=== PATIENT | male | born 1945 | race Native Hawaiian/Other Pacific Islander ===

== ENCOUNTER 2017-10-29 09:52 | Emergency (ER) | payer MEDICARE ==
--- NOTE | 2017-10-29 11:14 | Emergency Department Report ---
ED Male HPI - General Chief complaint: Urogenital-Male Stated complaint: pringle catheter issue Time Seen by Provider: 10/29/17 11:08 Source: patient Mode of arrival: Ambulatory Limitations: No Limitations - History of Present Illness Initial comments: Patient is a 72-year-old spelled male who is presenting with a chief complaint of wanting his Pringle catheter removed. Patient is a poor historian secondary to his age he states that he does not remember exactly why the Pringle was placed. Patient states it's been present for approximately 15 days. The Pringle catheter was inserted at another hospital and is not associated with hours. Patient states he has no pain and he said free-flowing clear urine since the Pringle has been placed. Patient has not followed up with urology but is asking to remove his Pringle catheter. Patient denies any fevers chills nausea vomiting back pain shortness of breath cough, congestion at this time. - Related Data Allergies Allergy/AdvReac Type Severity Reaction Status Date / Time No Known Allergies Allergy Unverified 10/29/17 10:06 ED Review of Systems ROS: Stated complaint: SUTURE REMOVAL Other details as noted in HPI Comment: All other systems reviewed and negative ED Past Medical Hx - Past Medical History Hx Hypertension: Yes - Surgical History Additional Surgical History: left nephroectomy - Social History Smoking Status: Never Smoker Substance Use Type: None ED Physical Exam - General Limitations: No Limitations General appearance: alert, in no apparent distress - Head Head exam: Present: atraumatic, normocephalic - Eye Eye exam: Present: normal appearance - ENT ENT exam: Present: mucous membranes moist - Neck Neck exam: Present: normal inspection - Respiratory Respiratory exam: Present: normal lung sounds bilaterally. Absent: respiratory distress - Cardiovascular Cardiovascular Exam: Present: regular rate, normal rhythm. Absent: systolic murmur, diastolic murmur, rubs, gallop - GI/Abdominal GI/Abdominal exam: Present: soft, normal bowel sounds - Rectal Rectal exam: Present: deferred - exam: Present: normal inspection, other (patient has a leg bag on his right lower extremity that does have clear yellow urine present.) - Extremities Exam Extremities exam: Present: normal inspection - Back Exam Back exam: Present: normal inspection - Neurological Exam Neurological exam: Present: alert, oriented X3 - Psychiatric Psychiatric exam: Present: normal affect, normal mood - Skin Skin exam: Present: warm, dry, intact, normal color. Absent: rash ED Course Vital Signs 10/29/17 10:06 Temperature 98.7 F Pulse Rate 80 Respiratory 15 Rate Blood Pressure 151/86 O2 Sat by Pulse 97 Oximetry - Reevaluation(s) Reevaluation #1: 10/29/17 11:14 Pringle catheter will be removed and will monitor the patient to assure that he is able urinate on his own. ED Medical Decision Making - Medical Decision Making Patient's a Pringle catheter was removed and he was able to void successfully. Patient does not feel as though he is having a buildup of urine in his bladder. Patient was monitored for several hours. Patient be discharged home with urology follow-up. Critical care attestation.: If time is entered above; I have spent that time in minutes in the direct care of this critically ill patient, excluding procedure time. ED Disposition Clinical Impression: Encounter for Pringle catheter removal Disposition: DC-01 TO HOME OR SELFCARE Is pt being admited?: No Does the pt Need Aspirin: No Condition: Stable Referrals: RUTH QUINN MD [Staff Physician] - 3-5 Days
[2017-10-29 15:13] VITALS: BP 142/84
== END 2017-10-29 15:12 | disposition home or self-care (01) ==
LOC: ED 09:52
DX: Z46.6 Encounter for fitting and adjustment of urinary device (principal); I10 Essential (primary) hypertension
CPT/HCPCS: 99282

== ENCOUNTER → 2018-05-10 14:33 | Emergency (ER) | payer MEDICARE | END | disposition left against medical advice (07) | LOC: ED 14:33 ==

== ENCOUNTER 2020-03-29 17:33 | Emergency (ER) | payer MEDICARE ==
--- NOTE | 2020-03-29 18:40 | Event Note ---
ED Screening Note Date of service: 03/29/20 Time: 18:39 ED Screening Note: Patient brought in by EMS for hearing voices Patient denies hearing voices, SI, or HI. He does report some dizziness and a headache Denies worsening of his life or head trauma This initial assessment/diagnostic orders/clinical plan/treatment(s) is/are subject to change based on patients health status, clinical progression and re- assessment by fellow clinical providers in the ED. Further treatment and workup at subsequent clinical providers discretion. Patient/guardian urged not to elope from the ED as their condition may be serious if not clinically assessed and managed. Initial orders include: Labs EKG
[2020-03-29 19:37] LABS: Basophils % (Auto) 0.4 % (0.0-1.8); Eosinophils # (Auto) 0.1 K/mm3 (0.0-0.4); Eosinophils % (Auto) 1.5 % (0.0-4.3); Hematocrit 39.7 % (35.5-45.6); Hemoglobin 13.3 gm/dl (11.8-15.2); Lymphocytes # (Auto) 1.1 K/mm3 (1.2-5.4); Lymphocytes % (Auto) 11.3 % (13.4-35.0); Mean Corpuscular HGB Conc 34 % (32-34); Mean Corpuscular Volume 88 fl (84-94); Monocytes # (Auto) 0.6 K/mm3 (0.0-0.8); Monocytes % (Auto) 5.9 % (0.0-7.3); Platelet Count 260 K/mm3 (140-440); Red Blood Count 4.48 M/mm3 (3.65-5.03); Red Cell Distribution Width 12.7 % (13.2-15.2)
[2020-03-29 20:01] LABS: Albumin 4.3 g/dL (3.9-5); Calcium 9.2 mg/dL (8.4-10.2)
[2020-03-29 23:54] LABS: Amphetamine Screen,Urine PRESUMPTIVE NEGATIVE; Benzodiazepines Screen,Urine PRESUMPTIVE NEGATIVE; Bilirubin,Urine NEG (Negative); Blood,Urine NEG (Negative); Cannabinoid Screen,Urine PRESUMPTIVE NEGATIVE; Cocaine Screen,Urine PRESUMPTIVE NEGATIVE; Color,Urine Yellow (Yellow); Methadone Screen,Urine PRESUMPTIVE NEGATIVE; Opiate Screen,Urine PRESUMPTIVE NEGATIVE; Urobilinogen,Urine < 2.0 mg/dL (<2.0)
[2020-03-30] MEDS ORDERED: LORazepam 2 MG/ML VIAL IM PRN (00:40)
[2020-03-30] MEDS ORDERED: HALOPERIDOL LACTATE 5 MG/1 ML INJ IM PRN (00:40)
--- NOTE | 2020-03-30 00:42 | Emergency Department Report ---
ED General Adult HPI - General Chief complaint: Altered Mental Status Stated complaint: HEARING VOICES PUI?: No Time Seen by Provider: 03/29/20 18:37 Source: patient, EMS ( EMS documentation not available at time of chart dictation ), RN notes reviewed, old records reviewed Mode of arrival: Ambulatory Limitations: Other (Patient is disorganized and a poor historian) - History of Present Illness Initial comments: The patient was evaluated in the emergency department for symptoms described in the history of present illness. He/she was evaluated in the context of the global COVID-19 pandemic, which necessitated consideration that the patient might be at risk for infection with the virus that causes COVID-19. Institutional protocols and algorithms that pertain to the evaluation of patients at risk for COVID-19 are in a state of rapid change based on information released by regulatory bodies including the CDC and federal and state organizations. These policies and algorithms were followed during the patient's care in the emergency department. Please note that these policies, procedures and recommendations changed on a rapid basis. mortgage processor: [id number] The patient is a 74-year-old gentleman. He is not known to myself previously. He appears to have a history of hypertension, and history of left nephrectomy. As per triage nursing documentation, patient brought to the hospital by EMS, with a complaint of hearing voices. The patient indicated to triage nurse that he did not know why he is here. He also indicated to the physician financial administrative assistant who screened him that he was hearing voices. The patient is very disorganized and a poor historian. Using the aforementioned operation supervisor, I attempted to obtain an appropriate history. The patient was very wandering and rambling in his responses, and no lucid or cogent history could be obtained. The patient informed me using the operation supervisor "the woman in the white dress sent me here." "They sent me here to get paperwork." The patient is not accompanied by friends or family for additional information or collateral information. Patient very disorganized, rambling and wandering, therefore, not able to describe qualitative nature of his symptoms, exacerbating factors, relieving factors, or aggravating factors. He is not accompanied by friends or family at this time for collateral information. Patient makes no complaint of physical pain at this time. -: unknown - Related Data Allergies Allergy/AdvReac Type Severity Reaction Status Date / Time No Known Allergies Allergy Unverified 10/29/17 10:06 ED Review of Systems ROS: Stated complaint: HEARING VOICES Other details as noted in HPI Comment: Unobtainable due to pts medical conditions ED Past Medical Hx - Past Medical History Previous Medical History?: Yes Hx Hypertension: Yes - Surgical History Additional Surgical History: left nephroectomy - Social History Smoking Status: Never Smoker ED Physical Exam - General Limitations: Other (Patient is disorganized) General appearance: in no apparent distress, anxious - Head Head exam: Present: atraumatic, normocephalic - Eye Eye exam: Present: normal appearance, EOMI. Absent: nystagmus - ENT ENT exam: Present: normal exam, normal orophraynx, mucous membranes moist, normal external ear exam - Neck Neck exam: Present: normal inspection, full ROM. Absent: tenderness, meningismus - Respiratory Respiratory exam: Present: normal lung sounds bilaterally. Absent: respiratory distress, wheezes, rales, rhonchi, stridor, decreased breath sounds - Cardiovascular Cardiovascular Exam: Present: regular rate, normal rhythm, normal heart sounds. Absent: bradycardia, tachycardia, irregular rhythm, systolic murmur, diastolic murmur, rubs, gallop - GI/Abdominal GI/Abdominal exam: Present: soft. Absent: distended, tenderness, guarding, rebound, rigid, pulsatile mass - Rectal Rectal exam: Present: deferred - Extremities Exam Extremities exam: Present: normal inspection, full ROM, other (2+ pulses noted in the bilateral upper and lower extremities. There is no palpable cord. negative Homans sign. Muscular compartments are soft. The pelvis is stable.). Absent: pedal edema, calf tenderness - Back Exam Back exam: Present: normal inspection. Absent: tenderness, CVA tenderness (R), CVA tenderness (L), paraspinal tenderness, vertebral tenderness - Neurological Exam Neurological exam: Present: altered, normal gait, other (There is no facial droop. The tongue is midline. The extraocular wounds are intact bilaterally. There is 5 out of 5 strength in 4 extremities.) - Psychiatric Psychiatric exam: Present: anxious - Skin Skin exam: Present: warm, dry, intact, normal color. Absent: rash ED Course Vital Signs 03/29/20 18:29 Temperature 98.4 F Pulse Rate 78 Respiratory 16 Rate Blood Pressure 165/108 O2 Sat by Pulse 97 Oximetry - Reevaluation(s) Reevaluation #1: 03/30/20 00:50 Differential diagnosis, including but not limited to: Dementia, dementia with psychosis, disorganized behavior, general medical examination Assessment and plan: 74-year-old gentleman, apparently brought to the hospital with a complaint of hearing voices. It is not known who contacted 911. Even with a mortgage processor, I am not able to obtain a lucid or cogent history from the patient. He has a nonfocal motor exam, is moving 4 extremities and is protecting his airway. His physical examination is fairly benign/unremarkable. CT scan of the brain, laboratory studies ordered. Psychiatric consultation requested. Coronavirus screen ordered in anticipation of possible placement into geriatric psychiatry. At the moment, friends, family, are not available for additional information/collateral information. Reevaluation #2: 03/30/20 03:[address] scan of the brain negative for acute findings. At this point in time, the patient does not appear to have an immediate medical contraindication to psychiatric admission, evaluation, consultation and placement. ED Medical Decision Making - Lab Data Result diagrams: 03/29/20 18:56 03/29/20 18:56 Vital Signs 03/29/20 18:29 Temperature 98.4 F Pulse Rate 78 Respiratory 16 Rate Blood Pressure 165/108 O2 Sat by Pulse 97 Oximetry Lab Results 03/29/20 03/29/20 03/29/20 Range/Units 18:56 18:56 18:56 WBC 9.7 (4.5-11.0) K/mm3 RBC 4.48 (3.65-5.03) M/mm3 Hgb 13.3 (11.8-15.2) gm/dl Hct 39.7 (35.5-45.6) % MCV 88 (84-94) fl MCH 30 (28-32) pg MCHC 34 (32-34) % RDW 12.7 L (13.2-15.2) % Plt Count 260 (140-440) K/mm3 Lymph % (Auto) 11.3 L (13.4-35.0) % [place] % (Auto) 5.9 (0.0-7.3) % Eos % (Auto) 1.5 (0.0-4.3) % Baso % (Auto) 0.4 (0.0-1.8) % Lymph # (Auto) 1.1 L (1.2-5.4) K/mm3 [place] # (Auto) 0.6 (0.0-0.8) K/mm3 Eos # (Auto) 0.1 (0.0-0.4) K/mm3 Baso # (Auto) 0.0 (0.0-0.1) K/mm3 Seg Neutrophils % 80.9 H (40.0-70.0) % Seg Neutrophils # 7.9 H (1.8-7.7) K/mm3 Sodium 143 (137-145) mmol/L Potassium 3.9 (3.6-5.0) mmol/L Chloride 102.0 (98-107) mmol/L Carbon Dioxide 29 (22-30) mmol/L Anion Gap 16 mmol/L BUN 18 (9-20) mg/dL Creatinine 1.8 H (0.8-1.3) mg/dL Estimated GFR 37 ml/min BUN/Creatinine Ratio 10 % Glucose 78 (75-100) mg/dL Calcium 9.2 (8.4-10.2) mg/dL Total Bilirubin 0.80 (0.1-1.2) mg/dL AST 24 (5-40) units/L ALT 19 (7-56) units/L Alkaline Phosphatase 66 (35-129) units/L Troponin T 0.013 (0.00-0.029) ng/mL Total Protein 7.3 (6.3-8.2) g/dL Albumin 4.3 (3.9-5) g/dL Albumin/Globulin Ratio 1.4 % Urine Color (Yellow) Urine Turbidity (Clear) Urine pH (5.0-7.0) Ur Specific Mays (1.003-1.030) Urine Protein (Negative) mg/dL Urine Glucose (UA) (Negative) mg/dL Urine Ketones (Negative) mg/dL Urine Blood (Negative) Urine Nitrite (Negative) Urine Bilirubin (Negative) Urine Urobilinogen (<2.0) mg/dL Ur Leukocyte Esterase (Negative) Urine WBC (Auto) (0.0-6.0) /HPF Urine RBC (Auto) (0.0-6.0) /HPF U Epithel Cells (Auto) (0-13.0) /HPF Urine Opiates Screen Urine Methadone Screen Ur Barbiturates Screen Ur Phencyclidine Scrn Ur Amphetamines Screen U Benzodiazepines Scrn Urine Cocaine Screen U Marijuana (THC) Screen Drugs of Abuse Note 03/29/20 03/29/20 Range/Units 22:59 22:59 WBC (4.5-11.0) K/mm3 RBC (3.65-5.03) M/mm3 Hgb (11.8-15.2) gm/dl Hct (35.5-45.6) % MCV (84-94) fl MCH (28-32) pg MCHC (32-34) % RDW (13.2-15.2) % Plt Count (140-440) K/mm3 Lymph % (Auto) (13.4-35.0) % [place] % (Auto) (0.0-7.3) % Eos % (Auto) (0.0-4.3) % Baso % (Auto) (0.0-1.8) % Lymph # (Auto) (1.2-5.4) K/mm3 [place] # (Auto) (0.0-0.8) K/mm3 Eos # (Auto) (0.0-0.4) K/mm3 Baso # (Auto) (0.0-0.1) K/mm3 Seg Neutrophils % (40.0-70.0) % Seg Neutrophils # (1.8-7.7) K/mm3 Sodium (137-145) mmol/L Potassium (3.6-5.0) mmol/L Chloride (98-107) mmol/L Carbon Dioxide (22-30) mmol/L Anion Gap mmol/L BUN (9-20) mg/dL Creatinine (0.8-1.3) mg/dL Estimated GFR ml/min BUN/Creatinine Ratio % Glucose (75-100) mg/dL Calcium (8.4-10.2) mg/dL Total Bilirubin (0.1-1.2) mg/dL AST (5-40) units/L ALT (7-56) units/L Alkaline Phosphatase (35-129) units/L Troponin T (0.00-0.029) ng/mL Total Protein (6.3-8.2) g/dL Albumin (3.9-5) g/dL Albumin/Globulin Ratio % Urine Color Yellow (Yellow) Urine Turbidity Clear (Clear) Urine pH 6.0 (5.0-7.0) Ur Specific Mays 1.014 (1.003-1.030) Urine Protein 30 mg/dl (Negative) mg/dL Urine Glucose (UA) Neg (Negative) mg/dL Urine Ketones Neg (Negative) mg/dL Urine Blood Neg (Negative) Urine Nitrite Neg (Negative) Urine Bilirubin Neg (Negative) Urine Urobilinogen < 2.0 (<2.0) mg/dL Ur Leukocyte Esterase Neg (Negative) Urine WBC (Auto) 1.0 (0.0-6.0) /HPF Urine RBC (Auto) 3.0 (0.0-6.0) /HPF U Epithel Cells (Auto) 1.0 (0-13.0) /HPF Urine Opiates Screen Presumptive negative Urine Methadone Screen Presumptive negative Ur Barbiturates Screen Presumptive negative Ur Phencyclidine Scrn Presumptive negative Ur Amphetamines Screen Presumptive negative U Benzodiazepines Scrn Presumptive negative Urine Cocaine Screen Presumptive negative U Marijuana (THC) Screen Presumptive negative Drugs of Abuse Note Disclamer - EKG Data -: EKG Interpreted by Ma EKG shows normal: sinus rhythm Rate: normal - EKG Data When compared to previous EKG there are: previous EKG unavailable 03/30/20 00:50 Sinus rhythm, 70 bpm, premature atrial complexes, left axis deviation, borderline left anterior fascicular block, left ventricular hypertrophy. The EKG is abnormal. The EKG is not a STEMI - Radiology Data Radiology results: pending Critical care attestation.: If time is entered above; I have spent that time in minutes in the direct care of this critically ill patient, excluding procedure time. ED Disposition Clinical Impression: General medical exam, Medical clearance for psychiatric admission, Elevated blood pressure reading, Renal insufficiency Disposition: DC/TX-65 PSY HOSP/PSY UNIT Is pt being admited?: No Does the pt Need Aspirin: No Condition: Good Referrals: PRIMARY CARE, [Primary Care Provider] - 3-5 Days
--- NOTE | 2020-03-30 02:28 | Cat Scan Report ---
CT head without contrast HISTORY: MAIN. Altered mental status TECHNIQUE: Axial imaging performed from the skull apex through the skull base without the use of con trast. All CT scans at this location are performed using CT dose reduction for ALARA by means of aut omated exposure control. COMPARISON: MRI brain from 01/29/2012 FINDINGS: There is mild motion artifact. Parenchyma: No acute intracranial hemorrhage or parenchymal abnormality. Periventricular hypodensiti es are likely in keeping with microangiopathy and there are also bilateral basal ganglia calcificatio ns. Ventricles: There is mild diffuse brain atrophy with commensurate ventricular enlargement which is l ikely age appropriate. Soft tissues: Soft tissues including the orbits appear normal. Bones: No acute osseous abnormality. Sinuses: Sinuses and mastoid air cells are clear. IMPRESSION: No acute abnormality. Signer Name: Keo Hankins MD Signed: 03/30/2020 2:24 AM Workstation Name: [id number]
--- NOTE | 2020-03-30 08:59 | Consultation ---
History of Present Illness - Reason for Consult Consult date: 03/30/20 Reason for consult: MHE Requesting physician: NIKITA GONZALES - History of Present Psychiatric Illness Per ED Provider: reservations agent: [id number]. The patient is a 74-year-old gentleman. He is not known to myself previously. He appears to have a history of hypertension, and history of left nephrectomy. As per triage nursing documentation, patient brought to the hospital by EMS, with a complaint of hearing voices. The patient indicated to triage nurse that he did not know why he is here. He also indicated to the physician assistant grocery who screened him that he was hearing voices. The patient is very disorganized and a poor historian. Using the aforementioned automation control technician, I attempted to obtain an appropriate history. The patient was very wandering and rambling in his responses, and no lucid or cogent history could be obtained. The patient informed me using the automation control technician "the woman in the white dress sent me here." "They sent me here to get paperwork." The patient is not accompanied by friends or family for additional information or collateral information. Patient very disorganized, rambling and wandering, therefore, not able to describe qualitative nature of his symptoms, exacerbating factors, relieving factors, or aggravating factors. He is not accompanied by friends or family at this time for collateral information. Patient makes no complaint of physical pain at this time. PSYCH HPI Toy Consultant used. Patient is a 74-year-old Monegas[place] male who presented to the ED by EMS with abnormal behavior/confusion. Attempt was made to try to talk to patient patient seems confused, patient keeps asking where he is and why he is. The Mini-Mental status exam was then conducted, patient is alert but not zina month or year. Patient also scored poorly on the Mini-Mental status exam using a SLUMS format with only a score of 5. Patient does his own date of , states he is and does wear a ring, and when asked which country he is patient thinks he is currently in [place] PAST PSYCHIATRIC HISTORY Diagnoses: n/a Suicide attempts or Self-harm behavior: n/a Prior psychiatric hospitalizations: n/a Substance Abuse history: n/a Previous psychiatric medications tried: n/a Outpatient treatment: n/a PAST MEDICAL HISTORY: n/a Family Psychiatric History: None reported or documented SOCIAL HISTORY Marital Status: , Living Arrangeme nts: n/a Employment Status: n/a Access to guns/weapons: n/a Education: n/a History of Abuse: n/a Legal History: n/a REVIEW OF SYSTEMS ROS cannot be reliably obtained from the patient due to his confusion MENTAL STATUS EXAMINATION General Appearance and Behavior: Age appropriate, good hygiene, wearing appropriate clothes, cooperative polite with questioning. Cooperation: disengaged Psychomotor Behavior: Psychomotor normal Mood: N/A Affect and affective range: Flat Thought Process: Tangential Thought Content: confused Speech: Normal volume, Regular rate and rhythm, Intellectual Functioning: Poor Suicidal Ideation: N/A Homicidal Ideation: N/A Impulse Control: Unimpaired Insight and Judgment: Impaired Memory: memory impaired Attention:Distractible, Orientation: Alert, but disoriented and confused Diagnoses: Assessment and Plan - Psychiatric problem (1) Dementia, unspecified, without behavioral disturbance Current Visit: Yes Status: Acute Treatment Plan Based on my initial assessment, suspicion for underlying dementia diagnosis. Recommend case management for family look up and home placement. MEDICATIONS: Risks, benefits and alternatives of medications discussed with the patient, questions answered and consent obtained from patient. PSYCHOTHERAPY: Supportive psychotherapy provided MEDICAL: Per primary team DELIRIUM PRECAUTIONS: Please re-orient patient frequently, keep lights on during the day, and minimize benzodiazepines and opiates as these medications could worsen patient's confusion. RECYCLING TECH: DISPOSITION: Do Not Recommend acute inpatient psychiatric hospitalization at this time LEGAL STATUS: 1013 rescinded FOLLOW-UP: Will sign off Thank you for the consult. Please contact with any questions and/or concerns. Medications and Allergies Allergies Allergy/AdvReac Type Severity Reaction Status Date / Time No Known Allergies Allergy Unverified 10/29/17 10:06 Active Meds: Active Medications Amlodipine Besylate (Amlodipine 5 Mg Tab) 5 mg PO QDAY RADHA Haloperidol Lactate (Haloperidol Lactate 5 Mg/1 Ml Inj) 5 mg IM Q6HR PRN PRN Reason: Agitation Last Admin: 03/30/20 01:00 Dose: 5 mg Documented by: Lorazepam (Lorazepam 2 Mg/Ml Vial) 2 mg IM Q4HR PRN PRN Reason: Agitation Last Admin: 03/30/20 01:00 Dose: 2 mg Documented by: Mental Status Exam - Vital signs Last Vital Signs Temp 97.9 F 03/30/20 02:16 Pulse 75 03/30/20 02:16 Resp 18 03/30/20 02:16 BP 124/124 03/30/20 02:16 Pulse Ox 99 03/30/20 02:16 Results Result Diagrams: 03/29/20 18:56 03/29/20 18:56 Abnormal lab results 03/29/20 03/29/20 03/30/20 Range/Units 18:56 18:56 01:14 RDW 12.7 L (13.2-15.2) % Lymph % (Auto) 11.3 L (13.4-35.0) % Lymph # (Auto) 1.1 L (1.2-5.4) K/mm3 Seg Neutrophils % 80.9 H (40.0-70.0) % Seg Neutrophils # 7.9 H (1.8-7.7) K/mm3 Creatinine 1.8 H (0.8-1.3) mg/dL Total Creatine Kinase 303 H (55-170) units/L Salicylates (2.8-20.0) mg/dL Acetaminophen (10.0-30.0) ug/mL 03/30/20 03/30/20 Range/Units 01:14 01:14 RDW (13.2-15.2) % Lymph % (Auto) (13.4-35.0) % Lymph # (Auto) (1.2-5.4) K/mm3 Seg Neutrophils % (40.0-70.0) % Seg Neutrophils # (1.8-7.7) K/mm3 Creatinine (0.8-1.3) mg/dL Total Creatine Kinase (55-170) units/L Salicylates < 0.3 L (2.8-20.0) mg/dL Acetaminophen 5.0 L (10.0-30.0) ug/mL All other labs normal. Assessment and Plan - Psychiatric problem (1) Dementia, unspecified, without behavioral disturbance Current Visit: Yes Status: Acute
[2020-03-30] MEDS: amLODIPine 5 MG TAB PO SCH (11:00)
[2020-03-31] MEDS: amLODIPine 5 MG TAB PO SCH (11:11)
[2020-03-31] MEDS ORDERED: amLODIPine 5 MG TAB PO ONE (21:22)
[2020-04-02] MEDS ORDERED: cloNIDine 0.2 MG TAB PO ONE (01:55)
[2020-04-02] MEDS ORDERED: ONDANSETRON 4 MG ODT TAB PO PRN (20:04)
[2020-04-02] MEDS ORDERED: ACETAMINOPHEN 500 MG TAB PO PRN (20:04)
[2020-04-03] MEDS: amLODIPine 5 MG TAB PO SCH (10:50)
--- NOTE | 2020-04-03 16:05 | Emergency Department Report ---
Blank Doc - Documentation Documentation: Case management requests COVID test for placement. COVID test ordered.
--- NOTE | 2020-04-03 20:52 | Event Note ---
Date: 04/03/20 Case management and psychiatric recommendations and documentation are reviewed and appreciated. I agree with the psychiatric team's recommendations that this is most likely dementia. Dementia is not an emergent medical condition, and does not require emergent admission to the hospital for work-up/evaluation. On a similar vein, emergent neurologic consultation is not indicated for dementia work-up, as it is an outpatient work-up and referral. Therefore, there is no indication for emergent neurology consult from the emergency room, all this can be coordinated and done as an outpatient, by a primary care doctor. This patient still remains medically suitable for discharge with outpatient follow-up, and does not appear to have an emergent medical condition present at this time which would preclude discharge. At this point in time, we will defer to our case management/social workers to arrange appropriate safe outpatient disposition.
[2020-04-04] MEDS: amLODIPine 5 MG TAB PO SCH (10:19)
[2020-04-05] MEDS: amLODIPine 5 MG TAB PO SCH (09:36)
[2020-04-05 15:27] VITALS: BP 151/94
== END 2020-04-05 18:12 | disposition home or self-care (01) ==
LOC: ED 17:33 → EEVIPCON 17:33 → ED 04-05 18:12
DX: N28.9 Disorder of kidney and ureter, unspecified (principal); Z20.828 Contact with and (suspected) exposure to other viral communicable diseases; I10 Essential (primary) hypertension; Z04.6 Encounter for general psychiatric examination, requested by authority; Z90.89 Acquired absence of other organs
CPT/HCPCS: 36415; 70450; 80053; 80307; 81001; 82550; 83735; 84443; 84484; 85025; 93005; 96372; 99285; J1630; J2060; U0003; 80320; G0480

== ENCOUNTER 2020-04-06 12:24 | Emergency (ER) | payer MEDICARE ==
--- NOTE | 2020-04-06 12:44 | Emergency Department Report ---
ED Medical Clearance HPI - General Chief complaint: Medical Clearance Stated complaint: EVALUATION Time Seen by Provider: 04/06/20 12:38 Source: patient Mode of arrival: Ambulatory - History of Present Illness Initial comments: Patient is a 74-year-old male with presumed history of dementia who presents to the emergency department stating that he needs a ride home. Patient was initially in the department on the where he was noted to be hearing voices. Patient was initially a psychiatric hold. Case management as well as psych were involved in the care of the patient. It was determined that the patient could be given cab fare to an address for which he had mail in his pocket. Currently patient is confused and does not know where he is. Home medications: Home Medications Medication Instructions Recorded Confirmed Last Taken No Known Home Medications [No 04/03/20 04/03/20 Unknown Reported Home Medications] Allergies/Adverse reactions: Allergies Allergy/AdvReac Type Severity Reaction Status Date / Time No Known Allergies Allergy Unverified 10/29/17 10:06 ED Review of Systems ROS: Stated complaint: EVALUATION Other details as noted in HPI Comment: Unobtainable due to pts medical conditions ED Past Medical Hx - Past Medical History Previous Medical History?: Yes Hx Hypertension: Yes Additional medical history: dementia - Surgical History Past Surgical History?: Yes Additional Surgical History: left nephroectomy - Social History Smoking Status: Never Smoker - Medications Home Medications: Home Medications Medication Instructions Recorded Confirmed Last Taken Type No Known Home Medications [No 04/03/20 04/03/20 Unknown History Reported Home Medications] ED Physical Exam - General Limitations: Language Barrier General appearance: alert, in no apparent distress - Head Head exam: Present: atraumatic, normocephalic - Eye Eye exam: Present: normal appearance Pupils: Present: normal accommodation - ENT ENT exam: Present: normal exam - Neck Neck exam: Present: normal inspection - Respiratory Respiratory exam: Absent: respiratory distress - Cardiovascular Cardiovascular Exam: Present: regular rate, normal rhythm, normal heart sounds - GI/Abdominal GI/Abdominal exam: Present: soft. Absent: distended - Rectal Rectal exam: Present: deferred - Extremities Exam Extremities exam: Present: normal inspection - Back Exam Back exam: Present: normal inspection - Neurological Exam Neurological exam: Present: alert, CN II-XII intact, normal gait, other (Is oriented oriented). Absent: abnormal gait, motor sensory deficit - Expanded Neurological Exam Expanded Neurological exam: Present: memory loss-remote event - Psychiatric Psychiatric exam: Present: other (Patient does not appear depressed but he has significant memory loss and is disoriented) - Skin Skin exam: Present: warm, dry, intact ED Course Vital Signs 04/06/20 12:25 Temperature 98.0 F Pulse Rate 100 H Respiratory 18 Rate Blood Pressure 161/107 [Right] O2 Sat by Pulse 98 Oximetry - Reevaluation(s) Reevaluation #1: 04/06/20 19:16 Unfortunately we have not been able to contact patient's friends or family. I do not think that the patient will be safe to discharge. Upon discussion with staff in the hospital the patient did not leave the waiting room. He did not use the cab fare that was given to him. Given this I do not think it safe for patient to be discharged again with the same plan as he did not make it outside of the hospital. The patient does not know he is in a hospital he thinks he is at a hotel. Psychiatry states that they saw him at the previous admission and did not need to see him again. Unfortunately I think that case management will need to find family or that patient should be a [place] the [place] as he is unable to care for himself safely. ED Medical Decision Making - Medical Decision Making Patient is a 74-year-old male with presumed history of dementia, previous admission to the emergency department for auditory hallucinations who presents to the emergency department confused and stating that he needs a ride home. Patient was previously here from the to the and it was determined that the patient was safe to be discharged to an address on [place] which was on the mail in his pocket. We will plan to involve psych, case management for further recommendations for the patient. Given that patient is confused he will need either someone from his family or friend to pick him up before he can be safely discharged from the emergency department. ED Disposition Clinical Impression: General medical exam, Dementia, unspecified, without behavioral disturbance Disposition: [id number] ANOTHER TYPE HLTHCARE Is pt being admited?: No Does the pt Need Aspirin: No Condition: Stable
[2020-04-06] MEDS ORDERED: ZIPRASIDONE MESYLATE 20 MG VIAL IM ONE (18:03)
[2020-04-06] MEDS ORDERED: ALUM-MAG HYDROXIDE-SIMETHICONE 200-200-20MG/5ML ORAL LIQD 30 ML PO PRN (19:13)
[2020-04-06] MEDS ORDERED: ACETAMINOPHEN 325 MG TAB PO PRN (19:13)
[2020-04-06] MEDS ORDERED: MAGNESIUM HYDROXIDE (MOM) ORAL LIQD UDC PO PRN (19:13)
[2020-04-07 01:26] LABS: Basophils % (Auto) 0.4 % (0.0-1.8); Eosinophils # (Auto) 0.1 K/mm3 (0.0-0.4); Eosinophils % (Auto) 0.6 % (0.0-4.3); Hematocrit 37.2 % (35.5-45.6); Hemoglobin 12.5 gm/dl (11.8-15.2); Lymphocytes # (Auto) 1.1 K/mm3 (1.2-5.4); Lymphocytes % (Auto) 10.5 % (13.4-35.0); Mean Corpuscular HGB Conc 34 % (32-34); Mean Corpuscular Volume 89 fl (84-94); Monocytes # (Auto) 0.6 K/mm3 (0.0-0.8); Monocytes % (Auto) 6.1 % (0.0-7.3); Platelet Count 212 K/mm3 (140-440); Red Cell Distribution Width 12.8 % (13.2-15.2)
[2020-04-07 01:57] LABS: Calcium 8.8 mg/dL (8.4-10.2)
[2020-04-09] MEDS ORDERED: cloNIDine 0.2 MG TAB PO ONE (21:03)
--- NOTE | 2020-04-10 12:40 | XRay Report ---
CHEST 2 VIEWS INDICATION: Needed for placement before D/C. COMPARISON: None. FINDINGS: Support devices: None. Heart: Within normal limits. The aorta is tortuous and ectatic. Lungs/Pleura: No acute air space or interstitial disease. No significant pleural effusion. Underlyi ng COPD. IMPRESSION: No acute findings. Signer Name: Demetrio Guzman MD Signed: 04/10/2020 12:36 PM Workstation Name: [id number]
[2020-04-10] MEDS ORDERED: TEMAZEPAM 15 MG CAP PO ONE (22:00)
[2020-04-10] MEDS ORDERED: amLODIPine 5 MG TAB PO ONE (22:00)
--- NOTE | 2020-04-11 19:45 | Emergency Department Report ---
Kyra Doc - Documentation Documentation: 74-year-old male who presented to the emergency room on 04/06/2020 for d ementia and having difficulty finding someone to live. dyehouse worker reports that she found placement for patient. Nurses report no concerns to prevent patient from being discharged. Patient denies any pain. Medical screening exam Gen: alert oriented NAD Cardic: regular rate and rhythm no murmurs appreciated Resp: Clear to auscultation bilateral no wheezing no rales or rhonchi. Abdomen: Soft nontender nondistended normal bowel sounds. Patient is ambulatory without difficulties. Patient has good automatic presser moving all extremities. Dementia Patient be discharged to personal shelter.
[2020-04-12 04:50] VITALS: BP 160/90
== END 2020-04-12 10:20 | disposition home or self-care (01) ==
LOC: ED 12:24
DX: F03.90 Unspecified dementia, unspecified severity, without behavioral disturbance, psychotic disturbance, mood disturbance, and anxiety (principal); Z20.828 Contact with and (suspected) exposure to other viral communicable diseases; Z00.00 Encounter for general adult medical examination without abnormal findings; I10 Essential (primary) hypertension; Z98.890 Other specified postprocedural states
CPT/HCPCS: 36415; 80048; 85025; 96372; 99285; J3486; U0003; 71046; 80320; G0480

== ENCOUNTER 2020-06-18 21:41 | Observation (INO) | payer MEDICARE ==
[2020-06-18 22:05] LABS: Basophils % (Auto) 0.5 % (0.0-1.8); Eosinophils # (Auto) 0.2 K/mm3 (0.0-0.4); Eosinophils % (Auto) 2.5 % (0.0-4.3); Hematocrit 35.3 % (35.5-45.6); Hemoglobin 12.2 gm/dl (11.8-15.2); Lymphocytes # (Auto) 1.4 K/mm3 (1.2-5.4); Lymphocytes % (Auto) 15.4 % (13.4-35.0); Mean Corpuscular HGB Conc 35 % (32-34); Mean Corpuscular Volume 87 fl (84-94); Monocytes # (Auto) 0.6 K/mm3 (0.0-0.8); Monocytes % (Auto) 6.4 % (0.0-7.3); Platelet Count 196 K/mm3 (140-440); Red Blood Count 4.06 M/mm3 (3.65-5.03); Red Cell Distribution Width 13.5 % (13.2-15.2)
[2020-06-18] MEDS ORDERED: cloNIDine 0.1 MG TAB PO ONE (22:12)
[2020-06-18 22:29] LABS: Albumin 4.1 g/dL (3.9-5); Calcium 8.5 mg/dL (8.4-10.2)
[2020-06-19] MEDS ORDERED: hydrALAZINE 25 MG TAB PO ONE (00:28)
[2020-06-19 01:58] LABS: Bilirubin,Urine NEG (Negative); Blood,Urine NEG (Negative); Color,Urine Yellow (Yellow); Protein,Urine <15 mg/dL mg/dL (Negative); Urobilinogen,Urine < 2.0 mg/dL (<2.0); WBC,Urine < 1.0 /HPF (0.0-6.0)
[2020-06-19 02:04] LABS: Amphetamine Screen,Urine PRESUMPTIVE NEGATIVE; Benzodiazepines Screen,Urine PRESUMPTIVE NEGATIVE; Cannabinoid Screen,Urine PRESUMPTIVE NEGATIVE; Cocaine Screen,Urine PRESUMPTIVE NEGATIVE; Methadone Screen,Urine PRESUMPTIVE NEGATIVE; Opiate Screen,Urine PRESUMPTIVE NEGATIVE
[2020-06-19] MEDS ORDERED: cloNIDine 0.2 MG TAB PO ONE (21:23)
[2020-06-20] MEDS ORDERED: ZIPRASIDONE MESYLATE 20 MG VIAL IM ONE (13:32)
[2020-06-20] MEDS ORDERED: ALUM-MAG HYDROXIDE-SIMETHICONE 200-200-20MG/5ML ORAL LIQD 30 ML PO PRN (15:21)
[2020-06-20] MEDS ORDERED: ACETAMINOPHEN 325 MG TAB PO PRN (15:21)
[2020-06-20] MEDS ORDERED: MAGNESIUM HYDROXIDE (MOM) ORAL LIQD UDC PO PRN (15:21)
[2020-06-20] MEDS ORDERED: LORazepam 2 MG/ML VIAL IM ONE (19:52)
[2020-06-20] MEDS ORDERED: HALOPERIDOL LACTATE 5 MG/1 ML INJ IM ONE (19:52)
[2020-06-20] MEDS ORDERED: diphenhydrAMINE 50 MG/ML VIAL IM ONE (21:39)
[2020-06-21 10:14] LABS: Calcium 9.2 mg/dL (8.4-10.2)
[2020-06-21] MEDS ORDERED: hydrALAZINE 20 MG/1 ML INJ IV ONE (11:15)
[2020-06-21] MEDS: hydrALAZINE 25 MG TAB PO SCH ×2 (14:08→22:07)
[2020-06-22] MEDS: SODIUM CHLORIDE 0.9% 1000 ML 1,000 ML IV SCH (00:21)
[2020-06-22] MEDS: ZIPRASIDONE MESYLATE 20 MG VIAL IM PRN ×3 (06:26→22:14)
[2020-06-22] MEDS: hydrALAZINE 25 MG TAB PO SCH ×3 (06:50→21:30)
[2020-06-22] MEDS ORDERED: WATER FOR INJ Sterile (PF) 10 ML ONE (17:05)
[2020-06-22] MEDS: hydrALAZINE 20 MG/1 ML INJ IV PRN (23:50)
[2020-06-23] MEDS: hydrALAZINE 25 MG TAB PO SCH ×3 (05:55→22:00)
[2020-06-23] MEDS: SODIUM CHLORIDE 0.9% 1000 ML 1,000 ML IV SCH (08:23)
[2020-06-23] MEDS: ZIPRASIDONE MESYLATE 20 MG VIAL IM PRN (11:51)
[2020-06-23] MEDS ORDERED: WATER FOR INJ Sterile (PF) 10 ML ONE (11:55)
[2020-06-23] MEDS: HALOPERIDOL 5 MG TAB PO PRN (16:20)
[2020-06-23] MEDS: LORazepam 2 MG/ML VIAL IV PRN (20:56)
[2020-06-24] MEDS: hydrALAZINE 25 MG TAB PO SCH ×3 (06:55→22:20)
[2020-06-24] MEDS: LORazepam 2 MG/ML VIAL IV PRN ×2 (11:44→17:28)
[2020-06-25] MEDS: SODIUM CHLORIDE 0.9% 1000 ML 1,000 ML IV SCH ×2 (03:23→13:42)
[2020-06-25] MEDS: LORazepam 2 MG/ML VIAL IV PRN (03:58)
[2020-06-25] MEDS: hydrALAZINE 20 MG/1 ML INJ IV PRN (05:16)
[2020-06-25] MEDS: hydrALAZINE 25 MG TAB PO SCH ×3 (05:17→21:14)
[2020-06-26] MEDS: SODIUM CHLORIDE 0.9% 1000 ML 1,000 ML IV SCH (03:56)
[2020-06-26] MEDS: hydrALAZINE 20 MG/1 ML INJ IV PRN (05:41)
[2020-06-26] MEDS: hydrALAZINE 25 MG TAB PO SCH ×3 (05:41→21:19)
[2020-06-26 06:04] LABS: Basophils # (Auto) 0.1 K/mm3 (0.0-0.1); Basophils % (Auto) 0.6 % (0.0-1.8); Eosinophils # (Auto) 0.4 K/mm3 (0.0-0.4); Eosinophils % (Auto) 3.5 % (0.0-4.3); Hematocrit 33.9 % (35.5-45.6); Hemoglobin 11.4 gm/dl (11.8-15.2); Lymphocytes # (Auto) 1.1 K/mm3 (1.2-5.4); Lymphocytes % (Auto) 11.4 % (13.4-35.0); Mean Corpuscular HGB Conc 34 % (32-34); Mean Corpuscular Volume 89 fl (84-94); Monocytes # (Auto) 0.8 K/mm3 (0.0-0.8); Monocytes % (Auto) 7.9 % (0.0-7.3); Platelet Count 179 K/mm3 (140-440); Red Blood Count 3.81 M/mm3 (3.65-5.03); Red Cell Distribution Width 13.4 % (13.2-15.2)
[2020-06-26 06:28] LABS: Albumin 3.6 g/dL (3.9-5); Calcium 8.3 mg/dL (8.4-10.2)
[2020-06-26] MEDS: HALOPERIDOL 5 MG TAB PO PRN ×2 (12:44→21:18)
[2020-06-26] MEDS: LORazepam 2 MG/ML VIAL IV PRN ×2 (18:45→23:45)
[2020-06-27] MEDS: hydrALAZINE 25 MG TAB PO SCH ×4 (06:30→22:30)
[2020-06-27] MEDS: HALOPERIDOL 5 MG TAB PO PRN ×2 (10:56→18:00)
[2020-06-27] MEDS: LORazepam 2 MG/ML VIAL IV PRN ×2 (12:10→22:30)
[2020-06-28] MEDS: HALOPERIDOL 5 MG TAB PO PRN ×2 (01:53→09:14)
[2020-06-28] MEDS: hydrALAZINE 25 MG TAB PO SCH ×3 (08:00→22:15)
[2020-06-28] MEDS ORDERED: TUBERCULIN PPD 5 TUB UNIT/0.1 ML INJ ID ONE (15:02)
[2020-06-28] MEDS ORDERED: HALOPERIDOL DECANOATE 100 MG/1 ML INJ IM ONE (22:16)
[2020-06-28] MEDS ORDERED: HALOPERIDOL LACTATE 5 MG/1 ML INJ IM ONE (22:16)
[2020-06-28] MEDS ORDERED: HALOPERIDOL LACTATE 5 MG/1 ML INJ ONE (22:17)
[2020-06-29] MEDS: LORazepam 2 MG/ML VIAL IV PRN ×2 (01:00→10:29)
[2020-06-29] MEDS: hydrALAZINE 25 MG TAB PO SCH ×2 (06:22→13:06)
[2020-06-29 16:58] VITALS: BP 137/86
== END 2020-06-29 20:00 ==
LOC: ED 21:41 → 3A 06-21 09:34 → INTOOBSV 06-21 09:34 → OBSVTOIN 06-21 09:34 → 3A 06-21 14:59
PROVIDERS: ADMIT Internal Medicine; ATTEND Internal Medicine
DX: G92 Toxic encephalopathy (principal); Z20.822 Contact with and (suspected) exposure to COVID-19; N17.9 Acute kidney failure, unspecified; I16.0 Hypertensive urgency; I12.9 Hypertensive chronic kidney disease with stage 1 through stage 4 chronic kidney disease, or unspecified chronic kidney disease; N18.9 Chronic kidney disease, unspecified; R41.82 Altered mental status, unspecified; F03.90 Unspecified dementia, unspecified severity, without behavioral disturbance, psychotic disturbance, mood disturbance, and anxiety; M25.59 Pain in other specified joint; Z79.899 Other long term (current) drug therapy; Z98.890 Other specified postprocedural states; Z73.4 Inadequate social skills, not elsewhere classified
CPT/HCPCS: 36415; 70450; 71045; 80048; 80053; 80307; 81001; 82962; 85025; 96361; 96372; 96374; 96375; 96376; 97162; 97165; 99285; G0378; J0360; J1200; J1630; J2060; J3486; J7030; U0003; 80320; 96365; 96366; 96367; 96368; G0480